=== PATIENT | female | born 1995 | race American Indian/Alaskan Native ===

== ENCOUNTER 2021-03-02 17:47 | Emergency (ER) | payer OTHER, SELFPAY ==
[2021-03-02 18:44] LABS: UTC Pregnancy Test, Urine Negative (Negative)
[2021-03-02 18:45] LABS: UTC Strep Screen (Rapid) Negative (Negative)
[2021-03-02 18:54] VITALS: BP 138/93; PULSE 104; RESP 20; TEMP 36.7; O2SAT 99; BMI 27.4
--- NOTE | 2021-03-02 18:59 | HMH.EDUTC ---
[facility] [place] Clinical Impression: Sinusitis Qualifiers: Sinusitis location: unspecified location Chronicity: unspecified Qualified Code(s): J32.9 - Chronic sinusitis, unspecified Disposition: Home, Self-Care Condition on Discharge: Good Instructions: Sinusitis, DI for Sinusitis, DI for COVID-19 (Suspected or Confirmed ), Preventing the Spread of Coronavirus Discharge Instructions Additional Instructions: *Monitor Temp, Over the counter Motrin or Tylenol as directed/as needed Tylenol every 4 hours and Motrin every 6 hours (as long as your family doctor has told you that you can take it) for fever or pain. and straight to ER if unable to lower temp less than 101.0 after medication given *Warm salt water gargles may help to soothe the throat *Throat Lozenges *Warm fluids like tea with honey may help to soothe the throat *Sleep elevated *Humidifier/Vaporizer Your throat swab was sent for culture. Those results are typically sent to your primary care. Be sure to follow up in 2-3 days with your family doctor/primary care physician if no improvement so they can review those result and treat if necessary. If you don?t have a primary care doctor, I recommend you get one but in the mean time, you will have to return to a walk in clinic Follow up IMMEDIATELY for new or worsening symptoms or no Noticeable improvement over the next 48-72 hours. 911 for difficulty breathing or swallowing You were tested for today for COVID19 your test result should be back in the next 24-48 hours, you may check your results on the [facility] My Health portal if you have trouble logging on or seeing your results you may call You was given a handout with instructions for Self Quarantine and Self isolation for while you wait on test results and what to do if they are positive If you are positive the Health Dept will be contacting you also Make sure to take your Vitamins Vit. C Vit D and Zinc if you can take them Prescriptions: methylPREDNISolone [Medrol 4mg tab] 4 mg PO DIRECTED #21 tab Prescription Printed Azithromycin [Z-Tyson 250mg Tab] 250 mg PO DIRECTED #6 tab Prescription Printed Referrals: Juanis Early [Primary Care Provider] - As needed Medical Decision Making - Rodriguez Inquiry Pt receiving controlled substance: No Rodriguez was queried for this patient: No Vital Signs: 03/02/21 18:54 Temperature 98.1 F Temperature Source Oral Pulse Rate [Right] 104 H Respiratory Rate 20 Blood Pressure [Right Arm] 138/93 H Blood Pressure Mean [Right Arm] 108 02 Sat by Pulse Oximetry 99 - Lab Data Lab Results 03/02/21 18:43: Strep Scn Rapid Clinic Negative 03/02/21 18:44: Tst Clinic Negative Orders (Tests/Meds): ORDERS Category Date Time Status Covid-19 Nasal PCR ([facility]) Routine Lab 03/02/21 18:25 Received Strep Screen Confirmation Stat Micro 03/02/21 18:43 Received [facility] UTC HPI - General Stated complaint: covid symptoms and test Time Seen by Provider: 03/02/21 18:59 Mode of Arrival: Ambulatory Source of Information: Patient Limitations: No Limitations Description of Symptoms (Recalled from Triage Doc. by RN): pt c/o n/v/d, DAMIAN, ears aches, sore throat, sinus pressure, partial loss of taste, and myalgia. HEENT Symptoms (Recalled from RN notes): Yes (DAMIAN, ears ache, sinus congestion, partial loss of taste and sore throat) Resp Symptoms (Recalled from RN notes): No Skin Symptoms (Recalled from RN notes): No MS Symptoms (Recalled from RN notes): No Functional Status (Recalled from RN notes): wnl - History of Present Illness Provider Complaint: Patient states that she has been having sore throat, pressure in her sinuses, body aches, headache and states that she hasnt lost her tast but nothing seems to taste right or is bland States that she was around a friend that has since told her that he has tested positive for COVID and she was around him again on Monday today when she was still feeling bad she came in to get [facility]
[2021-03-02 19:17] VITALS: BP 138/93; PULSE 104; RESP 20; TEMP 36.7
== END 2021-03-02 19:22 | disposition home or self-care (01) ==
PROVIDERS: Emergency Provider Nurse Practitioner; PCP Obstetrics & Gynecology
DX: U07.1 COVID-19 (principal); J32.9 Chronic sinusitis, unspecified
CPT/HCPCS: 81025; 87880; 99203; C9803; G0463; U0003; U0005